=== PATIENT | male | born 1990 | race African-American/Black ===

== ENCOUNTER 2018-06-19 05:50 | Inpatient (IN) | payer SELFPAY ==
[2018-06-19] MEDS ORDERED: Albuterol Sulfate 2.5 mg/3 ml Neb ONE ×2 (05:56→06:14)
[2018-06-19] MEDS ORDERED: Terbutaline Sulfate 1 MG/ML VIAL ONE (05:59)
[2018-06-19] MEDS ORDERED: Magnesium 2 GM/50 ML BAG (IN WATER) ONE ×2 (05:59→06:57)
[2018-06-19] MEDS ORDERED: Ketamine 500 mg/500 ml in NS IVPB PRN (06:03)
[2018-06-19] MEDS ORDERED: fentaNYL Citrate/PF 2,000 MCG in Sodium Chloride 0.9% 60 ML IV SCH (06:05)
[2018-06-19 06:17] LABS: Hemoglobin 15.3 g/dL (14.0-18.0); Mean Corpuscular HGB CONC 32.2 g/dL (32.0-36.0); Mean Corpuscular Hemoglobin 31.7 pg (27.0-31.0); Mean Corpuscular Volume 98.5 fL (78.0-98.0); Platelet Count 199 thou/uL (130-400); RBC Distribution Width 11.2 % (11.5-14.5); Red Blood Cell (RBC) Count 4.83 mill/uL (4.70-6.10); White Blood Cell (WBC) Count 12.9 thou/uL (4.8-10.8)
[2018-06-19 06:34] LABS: Band 1 % (5-11); Eosinophils 2 % (0-10); Lymphocytes 49 % (21-51); MDiff Complete? YES; Monocytes 14 % (0-10); Neutrophil 34 % (42-75)
[2018-06-19 06:39] LABS: Bilirubin Negative (Negative); Blood, Urine Large (Negative); Clarity CLOUDY (Clear); Glucose, Urine (Dipstick) Negative (Negative); Leukocyte Negative (Negative); Nitrite Negative (Negative); Protein, Urine (Dipstick) 100 mg/dL (Neg-Trace); Specific Gravity, Urine 1.014 (1.002-1.036); Urobilinogen 0.2 mg/dL (0.2-1.0)
[2018-06-19 06:42] LABS: Bacteria/HPF None Seen HPF (None Seen); WBC/HPF 0-3 HPF (0-3)
[2018-06-19 06:43] LABS: Pathc Cast-AUWi Flag 16.18 (0-2.49)
[2018-06-19 06:44] LABS: ALT (SGPT) 41 U/L (8-55); AST (SGOT) 38 U/L (5-34); Acetaminophen Less than 6.0 mcg/mL (10.0-30.0); Albumin 3.5 g/dL (3.5-5.0); Alcohol Less than 10 mg/dL (Less than 10); Alkaline Phosphatase 50 U/L (40-150); Anion Gap 17 mmol/L (10-20); BUN (Urea Nitrogen) 13 mg/dL (8.9-20.6); Bilirubin, Total 0.5 mg/dL (0.2-1.2); Calc. Creatinine Clearance 0 mL/min (70-130); Calcium 8.9 mg/dL (7.8-10.44); Carbon Dioxide 21 mmol/L (22-29); Chloride 105 mmol/L (98-107); Estimated GFR-MDRD 88; Globulin 2.5 g/dL (2.4-3.5); Glucose 181 mg/dL (70-105); Potassium 4.2 mmol/L (3.5-5.1); Salicylate Less than 8.0 mg/dL (15.0-30.0); Sodium 139 mmol/L (136-145)
[2018-06-19 06:51] LABS: Amphetamine Detected (NotDetected); Barbiturates Screen Not Detected (NotDetected); Benzodiazepine Screen Not Detected (NotDetected); Cocaine Metabolite Screen Not Detected (NotDetected); Crystals/HPF 2+ AMORPH URATES HPF (Negative); Medtox Control Line Valid? VALID (VALID); Medtox Reader # READER 4; Methadone Not Detected (NotDetected); Methamphetamine Detected (NotDetected); Opiate Screen Not Detected (NotDetected); Other Casts/LPF None Seen LPF (0-3 Hyaline); Oxycodone Screen Not Detected (NotDetected); Phencyclidine (PCP) Not Detected (NotDetected); Renal Epithelial None Seen HPF (0-3); THC/Cannabinoid Screen Detected (NotDetected); Transitional Epithelial NONE SEEN HPF (0-3); Tricyclic Screen Not Detected (NotDetected)
[2018-06-19] MEDS ORDERED: Rocuronium Bromide 10 MG/ML (10ML VIAL) ONE ×2 (06:57→07:01)
[2018-06-19] MEDS ORDERED: Oseltamivir 6 MG/ML ORAL SUSP PER TUBE SCH (07:15)
[2018-06-19] MEDS ORDERED: Diltiazem 125 MG/25 ML ONE (07:15)
[2018-06-19 07:53] LABS: Actual Bicarbonate (HCO3a) 26.5 mEq/L (22-28); Analyzer IN Cardio ER; Base Excess (BEa) -6.4 mEq/L (-2.0 to +3.0); Carboxyhemoglobin (COHb) 0.9 gm% (0.0-3.0); Hemoglobin (Hb) 16.1 g/dL (14.0-18.0); Potassium - ABG Lab 4.62 mmol/L (3.70-5.30); pH, Arterial 7.08 (7.35-7.45)
[2018-06-19 07:54] LABS: CO2 Tension 91.8 mmHg (35.0-45.0); O2 Tension (PaO2) 556.4 mmHg (80.0-100.0); Puncture Site RB
[2018-06-19 08:12] LABS: Actual Bicarbonate (HCO3a) 22.1 mEq/L (22-28); Analyzer IN Cardio ER; Base Excess (BEa) -4.6 mEq/L (-2.0 to +3.0); CO2 Tension 46.3 mmHg (35.0-45.0); Calcium, Ionized 1.04 mmol/L (1.12-1.30); Carboxyhemoglobin (COHb) 0.8 gm% (0.0-3.0); Hemoglobin (Hb) 15.5 g/dL (14.0-18.0); O2 Tension (PaO2) 63.1 mmHg (80.0-100.0); Potassium - ABG Lab 5.47 mmol/L (3.70-5.30)
[2018-06-19 08:13] LABS: Puncture Site RF
[2018-06-19 08:14] LABS: ALV-art Gradient 92.925 (0-20)
[2018-06-19] MEDS ORDERED: Acetaminophen 325 MG TAB PO PRN (08:19)
[2018-06-19] MEDS ORDERED: Zolpidem Tartrate 5 MG TAB PO PRN (08:19)
[2018-06-19] MEDS ORDERED: Ondansetron PF 4 MG/2 ML Vial IVP PRN (08:19)
--- NOTE | 2018-06-19 08:27 | RAD ---
EXAM: XR Chest 1 View Portable PROVIDED CLINICAL HISTORY: Respiratory insufficiency COMPARISON: Examination earlier same date FINDINGS: Interval placement of enteric catheter, the distal aspects of which are not seen but projects below t he diaphragm. Endotracheal tube again projects slightly caudal to the thoracic inlet. Cardiac and mediastinal silhouette is within normal limits. No focal consolidation evident. The supine nature of the examination limits sensitivity for pneumothorax, without evidence for such. IMPRESSION: Interval enteric catheter placement.
[2018-06-19 09:41] VITALS: BMI 19.2
--- NOTE | 2018-06-19 10:34 | RAD ---
CHEST 1 VIEW: Date: 06/19/18 INDICATION: Asthma exacerbation with intubation. COMPARISON: Prior exam dated 08/10/17. FINDINGS: The lungs are hyperinflated, but clear. No pleural effusion or pneumothorax evident. ET tube tip is s een in expected position. No acute osseous abnormality is evident. IMPRESSION: 1. Hyperinflation. 2. No pneumothorax. 3. ET tube tip in the expected position. POS: BH
--- NOTE | 2018-06-19 10:43 | CON ---
DATE OF CONSULTATION: HISTORY OF PRESENT ILLNESS: A 27-year-old gentleman, history from the EMS, brought in with status asthmaticus, intubated for marked respiratory distress. He got multiple neb treatments. Presently on steroids. He is now in the ICU on the vent on a ketamine drip. His drug screen was positive for multiple drug abuse. No other family members are present at the bedside to give additional history. PAST MEDICAL HISTORY: Pertinent mainly for asthma. MEDICATIONS: Unknown. PREVIOUS SURGERIES: At this time, unknown. CARDIAC MEDICATIONS: Unknown. ALLERGIES: UNKNOWN. REVIEW OF SYSTEMS: Otherwise difficult to get. He is sedated. PHYSICAL EXAMINATION: VITAL SIGNS: Temperature , pulse 98, respiratory rate 5, sats 100%, and blood pressure 106/70. CHEST: Prolonged expiration. Bilateral wheezing. CARDIAC: Sinus tach. ABDOMEN: Soft. LABORATORY DATA: White count 12,000, hemoglobin and hematocrit 15 and 47, and platelet count is normal. His PO2 prior to intubation was 556, pCO2 is 98, and pH 7.70. His pH is 7.30 now, pCO2 of 46, and pO2 of 63. X-ray is clear. Lytes are normal. His drug screen is positive for methamphetamines and cannabinoids. Alcohol level was less than 10. IMPRESSION: 1. Status asthmaticus. 2. Multi-drug abuse. 3. . PLAN: Continue vent, IV steroids, neb treatments, magnesium, Singulair was initiated. Wean when stable. TIME SPENT: 45 minutes critical time. Job ID: [id number]
[2018-06-19] MEDS: Enoxaparin Sodium 40 MG/0.4 ML SYRINGE SC SCH (10:53)
--- NOTE | 2018-06-19 10:59 | PDOC.EVN ---
Event Note - Event Note Event Note: H&P #[id number]
[2018-06-19] MEDS ORDERED: Fentanyl BOLUS 250 ML IVPB PRN (11:00)
[2018-06-19] MEDS ORDERED: Propofol 1,000 MG/100 ML VIAL IV PRN (11:00)
[2018-06-19] MEDS ORDERED: Morphine 2 MG/ML SYRINGE SLOW IVP PRN (11:00)
[2018-06-19] MEDS ORDERED: DISCONTINUE PREVIOUS NARCOTIC PAIN MEDICATIONS AND BENZODIAZEPINES FS SCH (11:00)
[2018-06-19] MEDS ORDERED: Propofol BOLUS 1,000 MG/100 ML VIAL IV PRN (11:00)
[2018-06-19] MEDS: Sodium Chloride 0.9% 1,000 ML IV SCH ×2 (11:06→19:20)
[2018-06-19] MEDS: Ventilator Sedation Protocol 1 EACH FS SCH (11:06)
[2018-06-19] MEDS: Lorazepam 2 MG/ML VIAL SLOW IVP PRN ×3 (11:11→16:22)
[2018-06-19] MEDS: methylPREDNISolone Sod Succ 40 MG VIAL IVP SCH ×2 (11:47→17:56)
--- NOTE | 2018-06-19 18:27 | HP ---
CHIEF COMPLAINT: Drug overdose, altered mental status, and shortness of breath. HISTORY OF PRESENT ILLNESS: This is a 27-year-old male, who is being admitted to the hospital through the ER, intubated. History is not really available. History obtained from chart review as well as discussion with the ER doctor. Per ER documentation, the patient apparently called EMS because of shortness of breath and an asthma. The patient was given three DuoNeb at that point in time and brought to the hospital. The patient was admitted because of severe significant respiratory failure. The patient was stabilized, found to have a pCO2 of 92 with a pH of 7.08. The patient was intubated on the spot, given multiple breathing treatments as well as adjustment in his ventilator settings and steroids. The patient's repeat ABG done a few hours later was significantly much better after intervention. The patient had a urine drug screen done, which was positive for cannabis as well as methamphetamines and amphetamines. The patient otherwise is unable to provide any history. REVIEW OF SYSTEMS: Not possible. PAST MEDICAL HISTORY: Unobtainable. MEDICATIONS: Unknown. FAMILY HISTORY: Unknown. SOCIAL HISTORY: Unknown. PHYSICAL EXAMINATION: VITAL SIGNS: Blood pressure 110/65, pulse of 93, respiratory rate of 25 on the vent, temperature of 98, O2 saturations 100% on ventilator. GENERAL: The patient is lying in bed, in no acute discomfort. HEENT: Dilated pupils noted, but they are reactive to light. The patient is intubated. NECK: Supple, mobile, nontender. Thyroid noted. CARDIOVASCULAR: Slightly borderline tachycardic rate. Faint systolic ejection murmur appreciated. PULMONARY: Coarse breath sounds noted bilaterally. No increase in AP diameter. ABDOMEN: Positive bowel sounds. Soft, nontender, nondistended. EXTREMITIES: 2+ peripheral pulses. No cyanosis, clubbing, or edema. NEUROLOGIC: Not possible given intubation status and medically discomatose state. LABORATORY DATA: Reviewed. ABG, CBC, BMP, urine drug screen reviewed. ASSESSMENT: 1. Status asthmaticus with respiratory failure, hypercapnic. 2. Leukocytosis. 3. Methamphetamine drug overdose. 4. Tachycardia. PLAN: At this point in time, we will admit the patient to the ICU. Put the patient on the bicarb drip. Continue current vent settings. Vital signs stable. Borderline tachycardia. We will monitor for now. Critical Care has been consulted and evaluation pending. The patient by default will be code status full. We will continue steroids as well as DuoNeb, and see if the patient's condition status improves. No family at bedside. Prognosis guarded. Job ID: [id number]
[2018-06-19] MEDS: Budesonide 0.5 MG/2 ML NEB INH SCH (18:34)
[2018-06-19] MEDS: Montelukast Sodium 10 mg Tablet PO SCH (19:41)
[2018-06-20] MEDS: methylPREDNISolone Sod Succ 40 MG VIAL IVP SCH ×4 (00:13→16:55)
[2018-06-20 04:34] LABS: #Lymphocytes 0.8 thou/uL (1.20-3.40); #Monocytes 0.8 thou/uL (0.11-0.59); #Neutrophils 9.4 thou/uL (1.40-6.50); %Basophils 0.1 % (0.0-1.0); %Eosinophils 0.1 % (0.0-10.0); %Lymphocytes 6.9 % (21.0-51.0); %Monocytes 7.3 % (0.0-10.0); %Neutrophils 85.7 % (42.0-75.0); Hemoglobin 13.5 g/dL (14.0-18.0); Mean Corpuscular HGB CONC 32.8 g/dL (32.0-36.0); Mean Corpuscular Hemoglobin 31.4 pg (27.0-31.0); Mean Corpuscular Volume 95.6 fL (78.0-98.0); Mean Platelet Volume 7.7 fL (7.4-10.4); Platelet Count 162 thou/uL (130-400); RBC Distribution Width 11.2 % (11.5-14.5); Red Blood Cell (RBC) Count 4.29 mill/uL (4.70-6.10)
[2018-06-20 04:46] LABS: Anion Gap 9 mmol/L (10-20); BUN (Urea Nitrogen) 14 mg/dL (8.9-20.6); Calc. Creatinine Clearance 99 mL/min (70-130); Calcium 8.6 mg/dL (7.8-10.44); Carbon Dioxide 22 mmol/L (22-29); Chloride 109 mmol/L (98-107); Estimated GFR-MDRD Greater than 90; Glucose 121 mg/dL (70-105); Potassium 4.1 mmol/L (3.5-5.1); Sodium 136 mmol/L (136-145)
[2018-06-20] MEDS: Sodium Chloride 0.9% 1,000 ML IV SCH ×2 (05:15→16:56)
[2018-06-20] MEDS: Budesonide 0.5 MG/2 ML NEB INH SCH ×2 (06:58→18:11)
[2018-06-20 07:03] LABS: Actual Bicarbonate (HCO3a) 21.4 mEq/L (22-28); CO2 Tension 32.4 mmHg (35.0-45.0); Calcium, Ionized 1.19 mmol/L (1.12-1.30); Carboxyhemoglobin (COHb) 0.6 gm% (0.0-3.0); Hemoglobin (Hb) 13.6 g/dL (14.0-18.0); O2 Tension (PaO2) 84.7 mmHg (80.0-100.0); Potassium - ABG Lab 4.24 mmol/L (3.70-5.30); pH, Arterial 7.44 (7.35-7.45)
[2018-06-20 07:04] LABS: Puncture Site RRA
--- NOTE | 2018-06-20 08:16 | RAD ---
EXAM: Single view of the chest HISTORY: Ventilated patient with respiratory failure COMPARISON: 06/19/2018 FINDINGS: Single view of the chest shows a normal sized cardiomediastinal silhouette. The endotrachea l tube and NG tube are unchanged in position. There is no evidence of consolidation, mass, or pleural effusion. The bones are unremarkable. IMPRESSION: No evidence of acute cardiopulmonary disease
[2018-06-20] MEDS: Enoxaparin Sodium 40 MG/0.4 ML SYRINGE SC SCH (09:21)
[2018-06-20] MEDS ORDERED: DC Sedation Protocol FS ONE (09:49)
--- NOTE | 2018-06-20 10:12 | PRG ---
DATE OF SERVICE: 06/20/2018 SUBJECTIVE: This morning, he is awake, responsive on the vent. The sedation is turned off. His vital signs are much stable. OBJECTIVE: VITAL SIGNS: Pulse is 84, blood pressure 167/80, sats 100%, respirations 16. CHEST: Decreased breath sounds, bilateral wheezing. CARDIAC: Sinus tach. ABDOMEN: Soft without masses. His blood gases show much improvement in his oxygenation. PO2 is 84, pCO2 . White count 11,000. His chemistry profile is unremarkable. IMPRESSION: Status asthmaticus, anxiety. We will try and decrease sedation. Consider weaning. Continue aggressive neb treatments, steroids. We will follow. One-half hour of critical time. Job ID: [id number]
[2018-06-20] MEDS: Ventilator Sedation Protocol 1 EACH FS SCH (19:13)
[2018-06-20] MEDS: Montelukast Sodium 10 mg Tablet PO SCH (20:20)
--- NOTE | 2018-06-20 20:46 | PDOC.PN ---
- Subjective Encounter Start Date: 06/20/18 Encounter Start Time: 12:30 Extubated. Did well. Complains of sore throat. Breathing well. - Objective Vital Signs & Weight: Vital Signs (12 hours) Temp Pulse Resp Pulse Ox 06/20/18 19:00 98.3 F 06/20/18 18:11 92 16 99 06/20/18 13:56 119 H 18 100 06/20/18 11:58 99 06/20/18 09:53 115 H 13 95 06/20/18 09:50 105 H 17 95 Weight Weight 119 lb 0.794 oz Most Recent Monitor Data Heart Rate from ECG 99 NIBP 118/56 NIBP BP-Mean 76 Respiration from ECG 17 SpO2 98 I&O: 06/19/18 06/20/18 06/21/18 06:59 06:59 06:59 Intake Total 2489 3225 Output Total 9240 3540 Balance -1286 -416 Result Diagrams: 06/20/18 04:07 06/20/18 04:07 Phys Exam - Physical Examination Constitutional: NAD Respiratory: no wheezing, no rales, no rhonchi, clear to auscultation bilateral Cardiovascular: RRR, no significant murmur, no rub Gastrointestinal: soft, non-tender, no distention, positive bowel sounds Musculoskeletal: no edema Psychiatric: normal affect, A&O x 3 Dx/Plan (1) Acute hypercapnic respiratory failure Code(s): J96.02 - ACUTE RESPIRATORY FAILURE WITH HYPERCAPNIA Status: Acute (2) Asthma Code(s): J45.909 - UNSPECIFIED ASTHMA, UNCOMPLICATED Status: Acute (3) Status asthmaticus Code(s): J45.902 - UNSPECIFIED ASTHMA WITH STATUS ASTHMATICUS Status: Acute (4) Polysubstance abuse Code(s): F19.10 - OTHER PSYCHOACTIVE SUBSTANCE ABUSE, UNCOMPLICATED Status: Acute - Plan * Intoxication resolving. * Breathing well. No wheezing now. * Continue nebs, steroids. * May transfer to floor.
[2018-06-21] MEDS: methylPREDNISolone Sod Succ 40 MG VIAL IVP SCH ×2 (00:12→05:22)
[2018-06-21] MEDS: Sodium Chloride 0.9% 1,000 ML IV SCH (01:32)
[2018-06-21] MEDS: Budesonide 0.5 MG/2 ML NEB INH SCH (06:56)
--- NOTE | 2018-06-21 08:25 | PRG ---
DATE OF SERVICE: 06/21/2018 SUBJECTIVE: This morning, he is much improved. Less cough and less wheezing. Extubated yesterday. Appears to be in no distress. He will be transferred out of the ICU to medical floor. PHYSICAL EXAMINATION: VITAL SIGNS: Pulse 80, blood pressure 124/71, saturations % on room air and respiratory rate 17. CHEST: No wheezing or crackles. CARDIAC: Normal S1, S2. No gallops. ABDOMEN: No masses. IMPRESSION: 1. Status asthmaticus, respiratory failure, resolved. 2. He is to be on inhaled steroids, neb treatments, and supportive care. He will be switched over to p.o. prednisone. Hopefully, he can be discharged home in the next 24-48 hours. Job ID: [id number]
[2018-06-21] MEDS: predniSONE 20 MG TAB PO SCH (09:19)
[2018-06-21] MEDS: Enoxaparin Sodium 40 MG/0.4 ML SYRINGE SC SCH (09:20)
[2018-06-21] MEDS: Mometasone/Formoterol 120 PUFF INHALER INH SCH (19:02)
[2018-06-21] MEDS: Montelukast Sodium 10 mg Tablet PO SCH (19:55)
--- NOTE | 2018-06-21 22:48 | PDOC.PN ---
- Subjective Encounter Start Date: 06/21/18 Encounter Start Time: 13:00 Patient seen and examined for Resp failure. SOB improving. Mild dry cough+. No new complaints. No overnight events - Objective MAR Reviewed: Yes Vital Signs & Weight: Vital Signs (12 hours) Temp Pulse Resp BP BP BP Pulse Ox 06/21/18 22:16 102 H 12 98 06/21/18 20:45 98 06/21/18 19:46 98.4 F 102 H 16 115/64 98 06/21/18 18:43 102 H 16 92 L 06/21/18 16:53 98.2 F 102 H 18 119/67 98 06/21/18 14:32 115 H 16 97 06/21/18 14:00 97 06/21/18 13:35 97.7 F 112 H 18 117/69 97 06/21/18 12:00 99.3 F 109 H 18 125/60 96 06/21/18 11:00 99.3 F Weight Weight 119 lb 0.794 oz Most Recent Monitor Data Heart Rate from ECG 109 NIBP 125/60 NIBP BP-Mean 76 Respiration from ECG 20 SpO2 96 I&O: 06/20/18 06/21/18 06/22/18 06:59 06:59 06:59 Intake Total 2489 4405 1520 Output Total 3775 6786 1180 Balance -1286 -238 340 Result Diagrams: 06/20/18 04:07 06/20/18 04:07 Phys Exam - Physical Examination Constitutional: NAD Respiratory: no wheezing, no rales scat rhonchi Cardiovascular: RRR, no rub Gastrointestinal: soft, non-tender, positive bowel sounds Musculoskeletal: no edema Dx/Plan - Plan DVT proph w/SCDs IMPRESSION: 1. Acute hypoxic/hypercapnic resp failure due to Status Asthmaticus 2. Polysubstance abuse 3. Toxic Metabolic Encephalopathy due to #1 4. Mild Metabolic acidosis PLAN: Cont Nebs/Steroids DC SQ Lovenox DC in 24 hr if stable Review of Systems - Review of Systems Cardiovascular: negative: chest pain, palpitations, orthopnea, paroxysmal nocturnal dyspnea, edema, light headedness, other Gastrointestinal: negative: Nausea, Vomiting, Abdominal Pain, Diarrhea, Constipation, Melena, Hematochezia, Other - Medications/Allergies Allergies/Adverse Reactions: Allergies Allergy/AdvReac Type Severity Reaction Status Date / Time No Known Allergies Allergy Verified 06/19/18 13:16 Medications: Current Medications Acetaminophen (Tylenol) 650 mg PO Q4H PRN PRN Reason: Headache/Fever/Mild Pain (1-3) Albuterol/Ipratropium (Duoneb) 3 ml NEB [id number] PRN PRN Reason: SOB &/or Wheezing Albuterol/Ipratropium (Duoneb) 3 ml NEB [id number] [facility] Last Admin: 06/21/18 22:16 Dose: 3 ml Enoxaparin Sodium (Lovenox) 40 mg SC 0900 [facility] Last Admin: 06/21/18 09:20 Dose: 40 mg Mometasone Furoate/Formoterol Fumar (Dulera 200 Mcg/5 Mcg Inhaler) 2 puff INH BID-RT [facility] Last Admin: 06/21/18 19:02 Dose: 2 puff Montelukast Sodium (Singulair) 10 mg PO QPM [facility] Last Admin: 06/21/18 19:55 Dose: 10 mg Ondansetron HCl (Zofran) 4 mg IVP Q6H PRN PRN Reason: Nausea/Vomiting Prednisone (Prednisone) 40 mg PO QAM-WM [facility] Last Admin: 06/21/18 09:19 Dose: 40 mg Sodium Chloride (Flush - Normal Saline) 10 ml IVF Q12HR PRN PRN Reason: Saline Flush
[2018-06-22] MEDS: Mometasone/Formoterol 120 PUFF INHALER INH SCH (07:38)
[2018-06-22] MEDS: predniSONE 20 MG TAB PO SCH (08:37)
--- NOTE | 2018-06-22 09:51 | PRG ---
DATE OF SERVICE: 06/22/2018 SUBJECTIVE: A 27-year-old gentleman this morning is much improved. Less short of breath. OBJECTIVE: VITAL SIGNS: Saturations 96% on room air, respirations 16, temperature 98, blood pressure 119/70. CHEST: No wheezing. CARDIAC: Normal S1, S2. No gallops. ABDOMEN: No masses. IMPRESSION: Asthma and respiratory failure much improved. He can be discharged home on Singulair 10 a day, Dulera 2 puffs twice a day, rescue inhaler as needed. Taper prednisone over a week. Follow up with primary care physician. Job ID: [id number]
[2018-06-22 12:00] VITALS: BP 107/69; TEMP 97.6
--- NOTE | 2018-06-22 17:43 | DIS ---
DATE OF ADMISSION: 06/19/2018 DATE OF DISCHARGE: 06/22/2018 DISCHARGE DISPOSITION: Home. FOLLOWUP: 1. Follow up with primary care physician, Dr. Wil Pastor in 1 week. 2. Follow up with Pulmonary, Dr. Holbrook in 2 to 3 weeks. ALLERGIES: NO KNOWN DRUG ALLERGIES. THE PATIENT WAS SEEN AND EXAMINED ON THE DAY OF DISCHARGE. DENIES ANY NEW COMPLAINTS. SHORTNESS OF BREATH HAS SIGNIFICANTLY IMPROVED. DISCHARGE MEDICATIONS: 1. Prednisone taper. 2. Singulair 10 mg daily. 3. Dulera 200 mcg/5 mcg two puffs b.i.d. 4. Albuterol inhaler as needed. BRIEF HOSPITAL COURSE: The patient is a 27-year-old male with mild persistent asthma, presented to the hospital with shortness of breath. The patient was found to be in status asthmaticus requiring mechanical intubation by EMS prior to ER arrival. He was monitored in the intensive care unit. He was started on IV steroids, nebulizer treatment. He was evaluated by Pulmonary, Dr. Holbrook. Later on, after extubation, he was transferred to the medical floor. He has done well on oral steroids and nebulizer treatment. He has been cleared by Dr. Holbrook for discharge. FINAL DIAGNOSES: 1. Acute hypoxic and hypercapnic respiratory failure due to status asthmaticus. His ABGs showed pH of 7.08 with pCO2 of 91.8. 2. Polysubstance abuse. 3. Toxic metabolic encephalopathy secondary to #1. 4. Respiratory acidosis secondary to #1. 5. Metabolic acidosis resolved. 6. Leukocytosis unlikely to be infectious. PLAN: Plan of care was discussed with the patient in detail. He stated understanding. Job ID: [id number]
== END 2018-06-22 15:08 | disposition home or self-care (01) | DRG 208 ==
LOC: EDBD 05:50 → ERS 05:50 → CCU 07:01 → T4-B 06-21 14:15
PROVIDERS: ADMIT Internal Medicine; ATTEND Internal Medicine
PROC: 0BH17EZ Insertion of Endotracheal Airway into Trachea, Via Natural or Artificial Opening (ICD-10-PCS; principal; 2018-06-19)
PROC: 5A1945Z Respiratory Ventilation, 24-96 Consecutive Hours (ICD-10-PCS; 2018-06-19)
DX: J45.32 Mild persistent asthma with status asthmaticus (principal); J96.02 Acute respiratory failure with hypercapnia; G92 Toxic encephalopathy; T43.621A Poisoning by amphetamines, accidental (unintentional), initial encounter; F19.10 Other psychoactive substance abuse, uncomplicated; F41.9 Anxiety disorder, unspecified
CPT/HCPCS: 36415; 71045; 80048; 80053; 80306; 80307; 81003; 81015; 82805; 83735; 83880; 84484; 85025; 87040; 87086; 87804; 93005; 94002; 94003; 94640; J1650; J2060; J2704; J2920; J3010; J3105; J3475; J3490; J7050; J7512; J7611; J7620; J7626